=== PATIENT | male | born 1945 | race Asian ===

== ENCOUNTER 2023-08-15 06:20 | Day surgery (SDC) | payer OTHER, SELFPAY ==
[2023-08-15 08:03] VITALS: BP 147/79
[2023-08-15 08:16] VITALS: BMI 25.2
[2023-08-15 08:20] VITALS: BMI 25.2
[2023-08-15 11:19] VITALS: BP 134/81
[2023-08-15 11:30] VITALS: BP 131/94
[2023-08-15 11:45] VITALS: BP 147/94
== END 2023-08-15 12:02 | disposition home or self-care (01) ==
LOC: GI 06:20
PROVIDERS: ATTENDING PHYSICIAN Internal Medicine Gastroenterology
DX: K86.9 Disease of pancreas, unspecified (principal); R10.13 Epigastric pain; F17.210 Nicotine dependence, cigarettes, uncomplicated; Z12.89 Encounter for screening for malignant neoplasm of other sites; Z80.0 Family history of malignant neoplasm of digestive organs; Z14.8 Genetic carrier of other disease
CPT/HCPCS: 43237; 43239; 88305; 88342